=== PATIENT | female | born 1995 | race African-American/Black ===

== ENCOUNTER 2016-09-22 16:11 | Emergency (ER) | payer BC ==
[~2016-09-22] VITALS: Wt 126.7 kg
[~2016-09-22 16:11] MED LIST: ACET500C5 PO; DOCU-144 PO; FLUC150T17 PO; FLUT16SP24 NASAL; IBUP-1542 PO; IBUP800T25 PO; ONDA4TAB14 PO; ONDA4TAB35 PO; ONDA4TAB8 PO; PEN500 PO; POLY17PO6 PO; PRENAT PO; SODI44SP11 NS
[2016-09-22] MEDS ORDERED: ACETAMINOPHEN 325 MG TAB PO STA (17:52)
[2016-09-22 18:24] LABS: BASOPHILS % 0.2 % (0.0-2.0); EOSINOPHILS # 0.1 10^3/ul (0.0-0.5); EOSINOPHILS % 0.9 % (0.0-7.0); HEMATOCRIT 35.2 % (37.0-47.0); HEMOGLOBIN 11.8 g/dl (12.0-16.0); LYMPHOCYTES # 1.4 10^3/ul (0.8-2.9); LYMPHOCYTES % 22.6 % (15.0-51.0); MEAN CORPUSCULAR HGB CONC 33.6 g/dl (32.0-37.0); MEAN CORPUSCULAR VOLUME 83.4 fl (82.0-101.0); MEAN PLATELET VOLUME 8.5 fl (7.4-10.4); MONOCYTE # 0.8 10^3/ul (0.3-0.9); NEUTROPHIL # 3.7 10^3/ul (1.6-7.5); NEUTROPHILS % 62.3 % (39.0-77.0); PLATELET COUNT 216 10^3/UL (140-440); RED BLOOD COUNT 4.21 10^6/ul (4.20-5.40); RED CELL DISTRIBUTION WIDTH 16.9 % (11.5-14.5)
[2016-09-22 18:25] LABS: ADD UMIC YES; URINE BILIRUBIN (Dip) NEGATIVE (NEGATIVE); URINE BLOOD (Dip) NEGATIVE (NEGATIVE); URINE COLOR YELLOW (YELLOW); URINE GLUCOSE (Dip) NEGATIVE (NEGATIVE); URINE KETONES (Dip) NEGATIVE (NEGATIVE); URINE LEUKOCYTE ESTERASE (Dip) NEGATIVE (NEGATIVE); URINE NITRITE (Dip) NEGATIVE (NEGATIVE); URINE TOTAL PROTEIN (Dip) TRACE (NEGATIVE); URINE UROBILINOGEN (Dip) 0.2 E.U./dL (0.1-1.0)
[2016-09-22 18:29] LABS: CONDITION 1; LH ANALYZER COMMENTS 1
--- NOTE | 2016-09-22 18:30 | RADRPT ---
PROCEDURE: US OB. CLINICAL INDICATION: Pain TECHNIQUE: Multiple sonographic images of the pelvis were obtained. Transabdominal imaging only w as performed. The images were reviewed on a PACS workstation. COMPARISON: 08/01/2016 FINDINGS: Single intrauterine gestation. Variable presentation. heart rate is 144 bpm. The cervix is not well visualized. Measurements were made in order to determine age. The results are as follows: BPD = 2.61 cm HC = 9.76 cm AC = 8.22 cm FL = 1.38 cm Estimated gestational age is 14 weeks 3 days (based on ultrasound measurements). Estimated date of delivery is 03/20/2017. EFW = 95 g +/- 14 g. (68%) The placenta is fundal. There is no evidence for an abruption or placenta previa. Amniotic fluid volume is grossly normal. Ovaries are not visualized. No adnexal mass or pelvic free fluid is seen. IMPRESSION: 1. Single live intrauterine gestation of 14 weeks 3 days (based on ultrasound measurements), as abo ve. RPTAT: EE .Brennan Pal MD, Date Time Electronically viewed and signed by .Brennan Pal MD, on 09/22/2016 18:30 .R/
[2016-09-22 18:47] LABS: URINE RBCS 0-2 /HPF (0)
[2016-09-22 18:48] LABS: BACTERIA,URINE FEW; MUCUS,URINE MODERATE
[2016-09-22] MEDS ORDERED: PRENAT PO (19:40)
[2016-09-22] MEDS ORDERED: ACET325T33 PO (19:40)
[2016-09-22] MEDS ORDERED: METO10TA92 PO (19:46)
--- NOTE | 2016-09-22 19:52 | ERD ---
ER Documentation Chief Complaint Date/Time DATE: 09/22/16 TIME: 19:47 Chief Complaint lower pelvic pain and vaginal pain no dysruia. no vag bleeding HPI This is a 20-year-old female presenting to the emergency department complaining of pelvic pain for the past month. Patient states the pain is moderate in severity, she denies any dysuria, vaginal discharge, bleeding. Patient does not remember her last menstrual period. She denies sexual activity for past few months. Upon asking her about her last menstrual period, patient states that she is unsure if she is and that she may be 6 weeks . Patient states that she has been here in July as well. She denies any vomiting, ROS All systems reviewed and are negative except as per history of present illness. Medications Home Meds Active Scripts Metoclopramide* (Reglan*) 10 Mg Tablet, 10 MG PO Q6 Y for NAUSEA AND/OR VOMITING , #10 TAB Prov:ALMA MARES PA-C 09/22/16 Multivit/Min/Fol Ac/Iron/Pren* ( S*) 1 Tab Tab, 1 TAB PO DAILY, #30 TAB Prov:ALMA MARES PA-C 09/22/16 Acetaminophen* (Tylenol*) 325 Mg Tablet, 2 TAB PO Q6 Y for PAIN AND OR ELEVATED TEMP, #20 TAB Prov:ALMA MARES PA-C 09/22/16 Acetaminophen* (Tylophen*) 500 Mg Capsule, 1 CAP PO Q6H Y for PAIN AND OR ELEVATED TEMP, #20 CAP Prov:PATRIC SMITH NP 08/02/16 Ondansetron (Ondansetron Odt) 4 Mg Tab.rapdis, 4 MG PO Q8 Y for NAUSEA AND/OR VOMITING, #30 TAB Prov:PATRIC SMITH NP 08/02/16 Multivit/Min/Fol Ac/Iron/Pren* ( S*) 1 Tab Tab, 1 TAB PO DAILY, #30 TAB Prov:PATRIC SMITH NP 08/02/16 Fluconazole* (Diflucan*) 150 Mg Tablet, 150 MG PO ONCE, #1 TAB Prov:MELI COURTNEY MD 04/15/16 Ibuprofen* (Motrin*) 600 Mg Tab, 600 MG PO Q6, #20 TAB Prov:MELI COURTNEY MD 04/15/16 Ibuprofen* (Motrin*) 800 Mg Tab, 800 MG PO Q6H Y for PAIN AND OR ELEVATED TEMP, #30 TAB Prov:MANDEEP MAJANO MD 04/10/16 Ondansetron Hcl* (Zofran* ODT) 4 mg -ODT Tab.disper, 4 MG PO Q8 Y for NAUSEA AND OR VOMITING, #30 TAB Prov:PATRIC SMITH NP 10/16/15 Docusate Sodium* (Colace*) 100 Mg Capsule, 100 MG PO BID, #60 CAP Prov:PATRIC SMITH NP 10/16/15 Polyethylene Glycol* (Miralax*) 17 Gm Powd.pack, 17 GM PO DAILY, #30 PACKET Prov:PATRIC SMITH NP 10/16/15 Ondansetron Hcl* (Zofran*) 4 Mg Tablet, 4 MG PO Q6H for NAUSEA AND/OR VOMITING, #30 TAB Prov:EDWARD MARLOW PA-C 06/10/15 Penicillin V Potassium* (Penicillin V K*) 500 Mg Tab, 500 MG PO BID for 10 Days , TAB Prov:EDWARD MARLOW PA-C 06/10/15 Sodium Chloride (Saline Nasal [place]) 45 Ml [place], 2 SPRAYS NS q1, #1 BOTTLE Prov:DORINA BENITEZ NP 01/24/15 Fluticasone Propionate* (Flonase* Nasal) 50 Mcg/[place] - 16 Gm [place].susp, 1 SPRAY NASAL DAILY, #1 BOTTLE Prov:DORINA BENITEZ TOOL GRINDER OPERATOR EXTERNAL 01/24/15 Reported Medications [none] Unknown Strength No Conflict Check 10/16/15 Allergies Allergies: Coded Allergies: No Known Allergy (Unverified , 09/22/16) PMhx/Soc History of Surgery: No Anesthesia Reaction: No Hx Neurological Disorder: No Hx Respiratory Disorders: No Hx Cardiac Disorders: No Hx Psychiatric Problems: No Hx Miscellaneous Medical Probl: No Hx Alcohol Use: No Hx Substance Use: No Hx Tobacco Use: No Smoking Status: Never smoker Physical Exam Vitals Vital Signs Date Time Temp Pulse Resp B/P Pulse Ox O2 Delivery O2 Flow Rate FiO2 09/22/16 16:38 98.2 71 21 123/59 99 Physical Exam General: well-developed/well-nourished, in no apparent distress, non-toxic appearing HENT: NC/AT Eyes: Conjunctiva normal Neck: Supple Pulm: CTA bilaterally, normal breathing CV: Normal S1S2 GI: Soft, non-distended, normal bowel sounds, TTP on suprapubic region Back: No midline tenderness, no masses, No CVAT Ext: No clubbing, cyanosis, or edema Neuro: Alert and orientated Skin: intact, normal turgor Psych: Normal mood and mentation Result Diagram: 09/22/161809 Results 24 hrs Laboratory Tests Test 09/22/16 18:00 09/22/16 18:10 Urine Bacteria FEW Urine Bilirubin NEGATIVE Urine Clarity HAZY Urine Color YELLOW Urine Epithelial Cells MODERATE Urine Glucose NEGATIVE% Urine Hemoglobin NEGATIVE Urine Ketones NEGATIVE Urine Leukocyte Esterase NEGATIVE Urine Microscopic RBC 0-2/HPF Urine Microscopic WBC 0-2/HPF Urine Mucus MODERATE Urine Nitrite NEGATIVE Urine Specific [place] 1.020 Urine Total Protein TRACE Urine Urobilinogen 0.2 E.U./dL Urine pH 6.5 Basophils # 0.010^3/ul Basophils % 0.2% Beta HCG, Quantitative 39366.0mIU/ml Blood Morphology Comment Eosinophils # 0.110^3/ul Eosinophils % 0.9% Hematocrit 35.2% Hemoglobin 11.8g/dl Lymphocytes # 1.410^3/ul Lymphocytes % 22.6% Mean Corpuscular Hemoglobin 28.0pg Mean Corpuscular Hemoglobin Concent 33.6g/dl Mean Corpuscular Volume 83.4fl Mean Platelet Volume 8.5fl Monocytes # 0.810^3/ul Monocytes % 14.0% Neutrophils # 3.710^3/ul Neutrophils % 62.3% Nucleated Red Blood Cells # 0.010^3/ul Nucleated Red Blood Cells % 0.0/100WBC Platelet Count 84523^3/UL Red Blood Count 4.2110^6/ul Red Cell Distribution Width 16.9% White Blood Count 6.010^3/ul Current Medications Medications (Trade) Dose Ordered Sig/Ortega Route PRN Reason Start Time Stop Time Status Last Admin Dose Admin Acetaminophen (Tylenol Tab) 650 mg ONCE STAT PO 09/22/16 17:52 09/22/16 17:53 DC 09/22/16 18:02 Metoclopramide HCl (Reglan) 5 mg ONCE ONCE PO 09/22/16 20:00 09/22/16 20:00 DC Metoclopramide HCl (Reglan) 10 mg ONCE ONCE PO 09/22/16 20:00 09/22/16 20:01 Procedures/MDM This is a 20-year-old female presenting to the emergency department complaining of pelvic pain for the past month. I have reviewed patient's chart and she has been here in July in which there was incidental finding of , patient states that she is unsure if she is at this time, she has not seen any POCKET SETTER. Lab work was drawn. CBC did not show any evidence of leukocytosis or anemia. Beta [place]CG [place] was 66893 which is within normal limits. UA did not show any evidence of hemoglobin or urinary tract infection. OB ultrasound was done and radiologist stated: Single intrauterine gestation. Variable presentation. heart rate is 144 bpm. The cervix is not well visualized. Measurements were made in order to determine age. The results are as follows: BPD = 2.61 cm HC = 9.76 cm AC = 8.22 cm FL = 1.38 cm Estimated gestational age is 14 weeks 3 days (based on ultrasound measurements) . Estimated date of delivery is 03/20/2017. EFW = 95 g +/- 14 g. (68%) The placenta is fundal. There is no evidence for an abruption or placenta previa. Amniotic fluid volume is grossly normal. Ovaries are not visualized. No adnexal mass or pelvic free fluid is seen. IMPRESSION: 1. Single live intrauterine gestation of 14 weeks 3 days (based on ultrasound measurements), as above. There was no evidence of placenta previa or abruption or complete . No evidence of urinary tract infection. I have given patient Tylenol in the ED. Patient appears well I have reassessed her she was doing well however she stating that she feels very stressed out at work and she also is complaining of nausea, therefore patient was given Reglan prescription. I discussed with patient that she needs to follow-up with an POCKET SETTER tomorrow for further evaluation management. Discussed return to the ER for any worsening signs or symptoms. Patient understands and agrees with plan. Departure Diagnosis: Primary Impression: Pelvic pain during Condition: Stable Patient Instructions: Pelvic Pain In : Unclear (2-3 Trimester) Referrals: POCKET SETTER [place] [address] [facility] [address] [place] [address] OFFICE FAX , [facility] [address] [place] [address] [address], [place] [address] [place] [address] [address] LIRIANO, [facility] [address] [facility] [address] [address], [facility] [address] [place] [address] [facility] [address] [place] [address] [address] [facility] [address] [address] [facility] [address] [facility] [facility] [address] [address] MCCARTHY, [place] [address] [facility], [facility] [address] [address] [facility] [address] [place], [place] [address] Additional Instructions: FOLLOW UP WITH YOUR PRIMARY CARE PHYSICIAN TOMORROW.Return to this facility if you are not improving as expected. Return to this facility if you are not improving as expected. Take all medicines as directed. ALMA MARES PA-C Sep 22, 2016 19:52
[2016-09-22 19:58] VITALS: BP 118/90; PULSE 70; RESP 18; TEMP 98.2
[2016-09-22] MEDS ORDERED: METOCLOPRAMIDE 10 MG TAB PO ONE ×2 (20:00)
== END 2016-09-22 20:00 | disposition home or self-care (01) ==
LOC: FTE 16:11
DX: O26.891 Other specified pregnancy related conditions, first trimester (principal); R10.2 Pelvic and perineal pain; Z3A.01 Less than 8 weeks gestation of pregnancy
CPT/HCPCS: 36415; 76801; 81001; 84702; 85025; 86900; 86901; 87086; Z7502; Z7610; 81003

== ENCOUNTER 2017-03-17 11:38 | Inpatient (IN) | payer BC ==
[~2017-03-17] VITALS: Ht 172.7 cm; Wt 130.5 kg
[~2017-03-17 11:38] MED LIST changes: +ACET325T33 PO; +EPHEDrine SULFATE 50 MG/5 ML SYG ONE; +METO10TA92 PO
[2017-03-17 11:50] VITALS: BP 132/87; PULSE 89; RESP 18
[2017-03-17 11:52] VITALS: Ht 172.7 cm; Wt 130.5 kg
--- NOTE | 2017-03-17 12:38 | RADRPT ---
PROCEDURE: US OB. CLINICAL INDICATION: Size and dates , contractions TECHNIQUE: Multiple sonographic images of the pelvis and gravid uterus were obtained. The images were reviewed on a PACS workstation. COMPARISON: 09/22/2016 FINDINGS: There is a single viable intrauterine gestation. Cardiac activity is present with 140 beats per min ulises. There is a breech presentation. The placenta is fundal. There is no evidence for an abruption or placenta previa. Measurements were made in order to determine age. The results are as follows: BPD =8.9 cm HC =31.8 cm AC =31.2 cm FL =6.6 cm Estimated gestational age of approximately 35 weeks and 2 days based on ultrasound measurements. Clinical age: 39 weeks and 0 days. The estimated date of delivery is 04/19/2017, based on ultrasound measurements. The EFW = 2556 g, <3%, based on LMP age. RPTAT: AA IMPRESSION: Single viable intrauterine gestation of approximately 35 weeks and 2 days based on ultrasound measu rements. Smaller than clinical age by 4 weeks. .Man Lyon MD, MD Date Time Electronically viewed and signed by .Man Lyon MD, on 03/17/2017 12:38 .S/
--- NOTE | 2017-03-17 12:43 | RADRPT ---
PROCEDURE: US OB biophysical profile. CLINICAL INDICATION: decreased movements, contractions TECHNIQUE: Multiple sonographic images of the pelvis were obtained. The images were reviewed on a PACS workstation. COMPARISON: 09/22/2016 FINDINGS: There is a single viable intrauterine gestation. Cardiac activity is present with 128 beats per min [place]. There is a breech presentation. The placenta is fundal. There is no evidence of placental abruption. There is a normal amount of amniotic fluid with an LISA = 9.7 cm. Biophysical profile: movement 2/2 tone 2/2. breathing 2/2 LISA 2/2 Total 03/10 RPTAT: AA . IMPRESSION: Normal biophysical profile. . .Man Lyon MD, MD Date Time Electronically viewed and signed by .Man Lyon MD, MD on 03/17/2017 12:43 .S/
--- NOTE | 2017-03-17 13:22 | TRIAGE ---
OB Triage Datetime Report Generated by CPN: 03/17/2017 13:22 Datetime: 03/17/2017 12:51 Comments: fhr 145 Datetime: 03/17/2017 11:57 Stage of : OB Triage Maternal Assessment Level of Consciousness: Fully Conscious DTR's/Clonus: DTRs 2+; No Clonus Headache: Denies Blurred Vision: No Respiratory Effort: Unlabored; Regular Rhythm; Equal Expansion Breath Sounds, Left: Clear and Equal Breath Sounds, Right: Clear and Equal Nausea/Vomiting: Denies RUQ Epigastric Pain: Denies Lower Extremities Edema: None Degree: None Upper Extremities Edema: None Degree: None Facial Edema: None Temperature Route: Oral Fall Risk Assessment History of Falling: (0) No Secondary Diagnosis: (0) No Ambulatory Aid: (0) Bedrest/Nurse Assist IV Therapy: (0) No Gait: (0) Normal/Bedrest/Immobile Mental Status: (0) Oriented to Own Ability Fall Score: 0 Fall Risk Score Definition: No Risk: No action required Labor Evaluation Monitor Mode: External Heart Rate FHR Baseline Rate: 125 Monitor Mode: External US Pain Assessment Pain Scale: 6 Pain Presence: Intermittent Pain Type: Contraction Pain Location: Abdomen Datetime: 03/17/2017 11:56 Time of Arrival: 03/17/2017 11:27 EGA: 39.0 Arrived By: Ambulatory Arrived From: Home Chief Complaint: Pt. came to hospital c/o lower abdominal and lower back cont. pain for 2 days, ge tting worst today, pain level 10/10 Movement: Present Rupture of Membranes: Denies Vaginal Bleeding: None Vaginal Discharge: Denies Recent Sexual Intercouse: Denies Abdominal Trauma: Not Applicable Patient Complaints: Back Pain Additional Patient Complaints: Time Provider Notified: 03/10/2017 12:10 Provider Notified: dr. laura Initial Plan: r/o labor Datetime: 03/17/2017 11:54 Time of Arrival: 03/17/2017 11:27 Arrived By: Ambulatory Arrived From: Home Chief Complaint: contractions Movement: Present Contractions: Regular Time Contractions Began: 03/17/2017 08:00 Rupture of Membranes: Denies Vaginal Bleeding: None Vaginal Discharge: Denies Recent Sexual Intercouse: Denies Abdominal Trauma: Not Applicable Patient Complaints: Contractions Additional Patient Complaints: pressure on vaginal area, contractions for several days , pt has no care with this Time Provider Notified: 03/17/2017 11:54 Provider Notified: Karen Initial Plan: efm/ u/s
[2017-03-17 14:36] LABS: BASOPHILS % 0.1 % (0.0-2.0); EOSINOPHILS % 0.3 % (0.0-7.0); HEMOGLOBIN 10.1 g/dl (12.0-16.0); LYMPHOCYTES # 1.9 10^3/ul (0.8-2.9); LYMPHOCYTES % 25.2 % (15.0-51.0); MEAN CORPUSCULAR HEMOGLOBIN 26.4 pg (29.0-33.0); MEAN CORPUSCULAR HGB CONC 31.6 g/dl (32.0-37.0); MEAN CORPUSCULAR VOLUME 83.8 fl (82.0-101.0); MONOCYTE # 0.7 10^3/ul (0.3-0.9); MONOCYTES % 9.2 % (0.0-11.0); NEUTROPHILS % 64.5 % (39.0-77.0); NUCLEATED RED BLOOD CELLS% 0.4 /100WBC (0.0-0.0); PLATELET COUNT 251 10^3/UL (140-415); RED BLOOD COUNT 3.82 10^6/ul (4.20-5.40); WHITE BLOOD COUNT 7.5 10^3/ul (4.8-10.8)
[2017-03-17] MEDS: LACTATED RINGER'S 1,000 ML IV SCH ×2 (14:51→16:24)
[2017-03-17] MEDS ORDERED: OXYTOCIN 30 UNITS/LR 500 ML IV PRN ×2 (15:00→19:30)
[2017-03-17] MEDS ORDERED: AMPICILLIN 2 GM/NS (PMX) 100 ML IVPB ONE (15:00)
[2017-03-17] MEDS ORDERED: CEFAZOLIN 2 GM/50 ML (PMX) 50 ML IV SCH (15:00)
[2017-03-17] MEDS ORDERED: CARBOPROST 250 MCG INJ IM PRN ×2 (15:00→19:30)
[2017-03-17] MEDS ORDERED: MISOPROSTOL 200 MCG TAB PR PRN ×2 (15:00→19:30)
[2017-03-17] MEDS ORDERED: METHYLERGONOVINE 0.2 MG INJ IM PRN ×2 (15:00→19:30)
[2017-03-17] MEDS ORDERED: OXYTOCIN 30 UNITS/LR 500 ML IV SCH (15:00)
[2017-03-17 16:03] LABS: ADD UMIC NO; UR ASCORBIC ACID NEGATIVE (NEGATIVE); UR BILIRUBIN (Dip) NEGATIVE (NEGATIVE); UR BLOOD (Dip) NEGATIVE (NEGATIVE); UR CLARITY CLEAR (CLEAR); UR COLOR YELLOW (YELLOW); UR GLUCOSE (Dip) NEGATIVE (NEGATIVE); UR KETONES (Dip) TRACE mg/dL (NEGATIVE); UR LEUKOCYTE ESTERASE (Dip) NEGATIVE Leu/ul (NEGATIVE); UR NITRITE (Dip) NEGATIVE (NEGATIVE); UR SPECIFIC GRAVITY (Dip) 1.024 (1.003-1.030); UR TOTAL PROTEIN (Dip) NEGATIVE (NEGATIVE); UR UROBILINOGEN (Dip) NEGATIVE (NEGATIVE)
[2017-03-17 16:16] LABS: ALBUMIN 3.6 g/dl (3.3-4.9); BILIRUBIN,INDIRECT 0.1 mg/dl (0-1.1); BILIRUBIN,TOTAL 0.1 mg/dl (0.2-1.3); CALCIUM 9.4 mg/dl (8.4-10.2); CREATININE 0.47 mg/dl (0.44-1.00); URIC ACID 4.8 mg/dl (3.1-7.9)
[2017-03-17 16:17] LABS: ALBUMIN/GLOBULIN RATIO 1.05
[2017-03-17 16:18] LABS: CANNABINOIDS Negative (NEGATIVE)
[2017-03-17 16:23] LABS: BARBITURATES Negative (NEGATIVE); BENZODIAZEPINES Negative (NEGATIVE); COCAINE Negative (NEGATIVE); OPIATES Negative (NEGATIVE)
[2017-03-17 16:28] LABS: PARTIAL THROMBOPLASTIN TIME 31.5 Sec (25.0-35.0)
[2017-03-17 16:44] LABS: INR 0.91; PROTIME 12.2 Sec (12.2-14.2)
[2017-03-17] MEDS ORDERED: LACTATED RINGER'S 1,000 ML IV ONE (17:10)
[2017-03-17] MEDS ORDERED: CITRIC ACID/NA CITRATE 30 ML CUP PO ONE (17:30)
[2017-03-17] MEDS ORDERED: FAMOTIDINE 20 MG INJ IV ONE (17:30)
[2017-03-17] MEDS ORDERED: METOCLOPRAMIDE 10 MG INJ IV ONE (17:30)
[2017-03-17] MEDS ORDERED: morphine SULFATE/PF (10 MG/10 ML) INJ ONE (18:03)
[2017-03-17] MEDS ORDERED: FENTAnyl 50 MCG/ML VIAL ONE (18:03)
[2017-03-17] MEDS ORDERED: PHENYLephrine (100 MCG/ML) 5ML SYG ONE (18:19)
[2017-03-17] MEDS ORDERED: CEFAZOLIN 1 GM INJ ONE (18:25)
[2017-03-17] MEDS ORDERED: MEPERIDINE 25 MG INJ IV PRN (18:30)
[2017-03-17] MEDS ORDERED: ONDANSETRON 4 MG INJ IV PRN (18:30)
[2017-03-17] MEDS ORDERED: HYDROmorphONE (0.2 MG/ML) 10ML SYG IV PRN (18:30)
[2017-03-17] MEDS ORDERED: KETOROLAC 30 MG INJ IV PRN (18:30)
[2017-03-17] MEDS ORDERED: PROCHLORPERAZINE 10 MG INJ IV PRN (18:30)
[2017-03-17] MEDS ORDERED: FENTAnyl 50 MCG/ML VIAL IV PRN (18:30)
[2017-03-17] MEDS ORDERED: DIPHENHYDRAMINE 50 MG INJ IV PRN (18:30)
[2017-03-17] MEDS ORDERED: ONDANSETRON 4 MG INJ ONE (18:43)
[2017-03-17] MEDS ORDERED: OXYTOCIN 30 UNITS/LR 500 ML IV ONE (18:44)
[2017-03-17] MEDS ORDERED: AMPICILLIN 1 GM/NS (PMX) 50 ML IVPB SCH (19:00)
[2017-03-17] MEDS ORDERED: LACTATED RINGER'S 1,000 ML IV SCH (19:06)
[2017-03-17] MEDS ORDERED: OXYCODONE/ACETAMINOPHEN (5/325) TAB PO PRN (19:30)
[2017-03-17] MEDS ORDERED: LANOLIN 7 GM TUBE TOP PRN (19:30)
--- NOTE | 2017-03-17 20:32 | HP ---
DATE OF ADMISSION: 03/17/2017 HISTORY OF PRESENT ILLNESS: Ms. Rowan Vargas is a 21-year- old, 2, para 1, LMP 06/17/2016, EDC 03/24/2017. Intrauterine at 39 weeks gestational age presented to triage complaining of regular contractions, however, she denies any vaginal bleeding or discharge. On admission she was around 2 cm dilated. She had ultrasound performed which revealed that the presentation was breech. She continued to complain of cramping/contractions. She is currently 4 to 5 cm dilated, 80 percent effaced minus 2 station. After explaining the risks, benefits, and alternative, the patient agreed for an elective primary C section. She had limited care. According to the care records from [facility] she only has 2 visits. PAST MEDICAL HISTORY: None. MEDICATIONS: vitamins. PAST SURGICAL HISTORY: None. OB HISTORY: Times 1 vaginal delivery. ORTHOTIC AIDE HISTORY: 12/ regular /4 days. Denies any sexually transmitted disease. Sexually active with 1 partner. SOCIAL HISTORY: Denies any smoking, drugs, or alcohol. FAMILY HISTORY: None. REVIEW OF SYSTEMS: All within normal, except history of present illness. PHYSICAL EXAMINATION: HEENT: Within normal. RESPIRATORY: Normal sinus rhythm. CARDIAC: S1 and S2, regular rhythm. ABDOMEN: Gravid, nontender. EXTREMITIES: Negative edema. No calf tenderness. VAGINAL EXAM: 4 to 5 cm, 80 percent, minus 2 station. Intact. ASSESSMENT: A 21-year-old, 2, para 1, intrauterine at 39 weeks gestational age, in labor, limited care, malpresentation, desires elective delivery. PLAN: Consent for a primary C section. Risks, benefits, and alternatives were explained and all questions were answered. Dictated By: Frank Davila MD /ranjan/maria fernanda /Document#: [id number] ANNALEE
[2017-03-17] MEDS: SENNA/DOCUSATE NA (8.6MG/50MG) TAB PO SCH (21:00)
[2017-03-17 22:35] VITALS: BP 128/62; PULSE 87; RESP 18
--- NOTE | 2017-03-17 22:56 | OPR ---
DATE OF OPERATION: 03/17/2017 PREOPERATIVE DIAGNOSIS: A 21-year-old, 2, para 1, intrauterine at 39 weeks gestational age and labor, malpresentation. POSTOPERATIVE DIAGNOSIS: A 21-year-old, 2, para 1, intrauterine at 39 weeks gestational age and labor, malpresentation. PROCEDURE: Primary low transverse SURGEON: Frank Davila MD BOAT ENGINE MECHANIC: Walt Jones MD ANESTHESIA: Spinal. COMPLICATIONS: None ESTIMATED BLOOD LOSS: 500 mL. FINDINGS: A viable male, Apgars 8 and 9 respectively at 1 and 5 minutes, weight 6 pounds 3 ounces. Normal uterus, tubes, and ovaries. Brennon breach presentation. OPERATIVE PROCEDURE: The patient was taken to the operating room where spinal anesthesia was found to be adequate. She was then prepped and draped in the normal sterile fashion in dorsal supine position with leftward tilt. A Pfannenstiel skin incision was then made with the scalpel and carried to the underlying fascia. The fascia was incised in midline and incision extended laterally and Meyers scissors. The superior aspect of the fascial incision was grasped with the curved clamps and the underlying rectus muscles dissected bluntly. Attention was the turned to the inferior aspect of the incision which in a similar fashion was grasped with curved clamps and rectus muscles dissected bluntly. The rectus muscle was incised midline. The peritoneum was identified and entered sharply with Metzenbaum scissors. The peritoneal incision was extended superiorly to easily show the bladder. The bladder blade was then inserted and the vesical uterine peritoneum identified. It was grasps with pickups and sharply with Metzenbaum scissors the incision was extended laterally and bladder flap created digitally. The bladder blade was then reinserted and dissected to the transverse fascia with a scalpel. The uterine incision was extended laterally. The bladder blade was removed and the 's buttock were delivered to the level of the scapula. The right hand was flipped across the chest and delivered. Similarly the fetus was rotated 180 degrees and the left arm was flipped across the chest and delivered. The head was then delivered automatically. The nose and mouth were suctioned and the cord was clamped and cut after delay. The infant was handed off to the waiting rate quoting operator. The placenta was removed. The uterus explored and cleared of all clots and debris. The uterine incision was repaired with 1-0 Chromic in a running lock fashion. A second layer of the same suture was used for excellent hemostasis. The uterus was returned to the abdomen. The gutters were cleared of all clots. The peritoneum and rectus abdominus muscles were reapproximated with 3-0 Vicryl. The fascia was reapproximated 0 Vicryl. The subcutaneous tissue was reapproximated with 2-0 plain gut in a running fashion. The skin was closed with absorbable lisset. The patient tolerated the procedure well. Sponge, laps, and needle counts were correct. The patient was taken to recovery room in stable condition. Dictated By: Frank Davila MD /ranjan/maria fernanda /Document#: [id number] ANNALEE
[2017-03-18] VITALS: BP 116/59; PULSE 71; RESP 18
[2017-03-18] MEDS ORDERED: HYDROmorphONE 1 MG/ML SYG IV PRN ×2
[2017-03-18] MEDS ORDERED: ONDANSETRON 4 MG INJ IV PRN
[2017-03-18] MEDS ORDERED: DIPHENHYDRAMINE 50 MG INJ IV PRN
[2017-03-18] MEDS ORDERED: NALOXONE (0.4 MG/ML) INJ IV PRN
[2017-03-18] MEDS ORDERED: ZOLPIDEM 5 MG TAB PO PRN
[2017-03-18] MEDS: CEFAZOLIN 2 GM/50 ML (PMX) 50 ML IV SCH ×3 (01:51→17:51)
[2017-03-18 04:00] VITALS: BP 102/53; PULSE 77; RESP 18
[2017-03-18] MEDS: KETOROLAC 30 MG INJ IV PRN ×2 (06:45→13:45)
[2017-03-18 07:45] VITALS: BP 116/74; PULSE 99; RESP 20
[2017-03-18] MEDS: SENNA/DOCUSATE NA (8.6MG/50MG) TAB PO SCH ×2 (09:09→21:22)
[2017-03-18 10:29] LABS: BASOPHILS % 0.1 % (0.0-2.0); EOSINOPHILS % 0.1 % (0.0-7.0); HEMATOCRIT 27.1 % (37.0-47.0); HEMOGLOBIN 8.7 g/dl (12.0-16.0); LYMPHOCYTES # 1.6 10^3/ul (0.8-2.9); LYMPHOCYTES % 16.4 % (15.0-51.0); MEAN CORPUSCULAR HEMOGLOBIN 26.9 pg (29.0-33.0); MEAN CORPUSCULAR HGB CONC 32.1 g/dl (32.0-37.0); MEAN CORPUSCULAR VOLUME 83.6 fl (82.0-101.0); MEAN PLATELET VOLUME 10.7 fl (7.4-10.4); MONOCYTES % 9.6 % (0.0-11.0); NEUTROPHILS % 73.3 % (39.0-77.0); NUCLEATED RED BLOOD CELLS% 0.2 /100WBC (0.0-0.0); PLATELET COUNT 202 10^3/UL (140-415); RED BLOOD COUNT 3.24 10^6/ul (4.20-5.40); RED CELL DISTRIBUTION WIDTH 17.7 % (11.5-14.5)
[2017-03-18 12:00] VITALS: BP 120/56; PULSE 91; RESP 18
[2017-03-18 16:00] VITALS: BP 115/57; PULSE 87; RESP 19
[2017-03-18] MEDS: IBUPROFEN 600 MG TAB PO SCH (18:17)
[2017-03-18] MEDS: OXYCODONE/ACETAMINOPHEN (5/325) TAB PO PRN (19:48)
[2017-03-18 19:50] VITALS: BP 138/77; PULSE 77; RESP 18
[2017-03-18] MEDS: FERROUS SULFATE (EC) 325 MG TAB PO SCH (21:21)
[2017-03-19] MEDS: IBUPROFEN 600 MG TAB PO SCH ×4 (00:33→17:32)
[2017-03-19 04:20] VITALS: BP 112/70; PULSE 70; RESP 18
[2017-03-19 08:00] VITALS: BP 139/74; PULSE 67; RESP 18
[2017-03-19] MEDS: SENNA/DOCUSATE NA (8.6MG/50MG) TAB PO SCH ×2 (09:00→20:29)
[2017-03-19] MEDS: FERROUS SULFATE (EC) 325 MG TAB PO SCH ×2 (09:35→20:29)
[2017-03-19 10:01] LABS: BASOPHILS % 0.2 % (0.0-2.0); EOSINOPHILS # 0.1 10^3/ul (0.0-0.5); EOSINOPHILS % 0.6 % (0.0-7.0); HEMOGLOBIN 8.7 g/dl (12.0-16.0); LYMPHOCYTES # 2.3 10^3/ul (0.8-2.9); LYMPHOCYTES % 23.5 % (15.0-51.0); MEAN CORPUSCULAR HEMOGLOBIN 27.6 pg (29.0-33.0); MEAN CORPUSCULAR HGB CONC 32.2 g/dl (32.0-37.0); MEAN CORPUSCULAR VOLUME 85.7 fl (82.0-101.0); MEAN PLATELET VOLUME 10.7 fl (7.4-10.4); MONOCYTES % 9.7 % (0.0-11.0); NEUTROPHILS % 65.5 % (39.0-77.0); PLATELET COUNT 205 10^3/UL (140-415); RED BLOOD COUNT 3.15 10^6/ul (4.20-5.40); RED CELL DISTRIBUTION WIDTH 18.4 % (11.5-14.5); WHITE BLOOD COUNT 9.8 10^3/ul (4.8-10.8)
[2017-03-19 12:23] LABS: RUBELLA ANTIBODY - IGG 4.62 index
[2017-03-19 16:00] VITALS: BP 123/72; PULSE 93; RESP 18
[2017-03-19 20:25] VITALS: BP 133/69; PULSE 74; RESP 19
[2017-03-19] MEDS: OXYCODONE/ACETAMINOPHEN (5/325) TAB PO PRN (20:30)
--- NOTE | 2017-03-19 23:19 | QN ---
Documentation Comment progress note pod 2 patient seen and evaluated no complaints vs stable afebrle ab c/d/i no distention extremity no edema no calf tenderness a/ sp cd pod 2 stable p/ continue present management RIANNA GOMEZ MD Mar 19, 2017 23:19
[2017-03-20] MEDS: IBUPROFEN 600 MG TAB PO SCH ×5 (00:17→23:55)
[2017-03-20 04:10] VITALS: BP 120/59; PULSE 72; RESP 17
[2017-03-20 08:00] VITALS: BP 117/50; PULSE 66; RESP 17
[2017-03-20] MEDS: SENNA/DOCUSATE NA (8.6MG/50MG) TAB PO SCH ×2 (09:54→21:28)
[2017-03-20] MEDS: FERROUS SULFATE (EC) 325 MG TAB PO SCH ×2 (09:55→21:28)
[2017-03-20] MEDS: OXYCODONE/ACETAMINOPHEN (5/325) TAB PO PRN (09:59)
--- NOTE | 2017-03-20 12:16 | QN ---
Documentation Comment POD#3 is stable afebrile No Vb +BM +voids Vs Stable Gen NAD Abd soft NT ND Incision ntact Genitalia No blood at perinium --->patient desires to stay in the hospital one extra day as her pain is not controlled to her opinion -->Ambulation TOÑITO NOLEN M.D. Mar 20, 2017 12:16
[2017-03-20 15:59] VITALS: BP 117/55; PULSE 72; RESP 16
[2017-03-20 20:05] VITALS: BP 128/65; PULSE 69; RESP 18
[2017-03-21] MEDS: OXYCODONE/ACETAMINOPHEN (5/325) TAB PO PRN ×2 (02:17→09:49)
[2017-03-21 04:15] VITALS: BP 124/76; PULSE 63; RESP 18
[2017-03-21] MEDS: IBUPROFEN 600 MG TAB PO SCH ×3 (05:44→18:41)
[2017-03-21 09:15] VITALS: BP 119/80; PULSE 69; RESP 20
[2017-03-21] MEDS: FERROUS SULFATE (EC) 325 MG TAB PO SCH (09:48)
[2017-03-21] MEDS: SENNA/DOCUSATE NA (8.6MG/50MG) TAB PO SCH (09:49)
--- NOTE | 2017-03-21 11:10 | QN ---
Documentation Comment Progress Note POD #4 S/p primary c/s for breech 03/17. Pt is struggling with . Has ample milk production but needs nipple slater and is struggling with keeping them on and is extremely frustrated. C/O moderate back pain. Minimal lochia. T=98.2 BP 124/76 Fundus is firm. Incision is moist but intact and no blood. Steristrips in place. Lochia minimal. A: POD #4 s/p c/s. Moderate back pain. Poor so kendy. P: Continue care. Prefer pt stay until tomorrow to better help her sort out the . Pain meds regularly. forestry consultant. Should be able to be d/noreen home tomorrow. ANTONINA POPE MD Mar 21, 2017 11:10
[2017-03-21 16:00] VITALS: BP 131/71; PULSE 65; RESP 20
--- NOTE | 2017-03-21 19:41 | PD.PPDC ---
HIM SPECIALIST Discharge Instruction Condition Patient Condition: Good Diet Diet: Resume Regular Diet Activity/Restrictions Activity: Bedrest May be up to bathroom May be up for meals May Shower Restrictions: No Exercising No Lifting No Driving Minimize Walking Minimize Stair-climbing No Sexual Activity Nothing in the Vagina No [place] No Tampons, douche Wound/Drain Care Instructions Wound/Drain Care Instructions: Remove Steri Strips in 2 weeks Keep clean and dry Follow-up Follow-up with Physician: 2, Week/Weeks Return to clinic for HONING MACHINE OPERATOR Instructions: Fever greater than 101 Chills Worsening abdominal pain Excessive Vaginal Bleeding OB Instructions: Breast Tenderness Depression Surgical Instructions: Incisional Drainage Incisional Redness ANTONINA POPE MD Mar 21, 2017 19:41
[2017-03-21] MEDS ORDERED: Oxycodone/Acetamin (5/325) PO (19:45)
[2017-03-21] MEDS ORDERED: IBUP800T25 PO (19:45)
--- NOTE | 2017-03-21 19:47 | DS ---
Date/Time of Note Date/Time of Note DATE: 03/21/17 TIME: 19:46 Obstetrical Discharge Record Final Diagnosis Final Diagnosis: Term delivered Section Section: Primary Primary Indication Breech Complications Augmentation: No Induction: No Condition on Discharge Physical Assessment Last Vitals: Afebrile, normotensive Voiding: Yes Bowel Movement: Yes Breast: Filling Fundus: Firm Abdomen and Incision: Clean,dry and intact Calf Tenderness: No Patient Condition: ANTONINA Storey MD Mar 21, 2017 19:47
== END 2017-03-21 20:30 | disposition home or self-care (01) | DRG 766 ==
LOC: OBT 11:38 → L-D 11:39 → OBT 13:04 → OBG 13:05 → L-D 16:48 → PP1 22:40
PROVIDERS: ADMIT Obstetrics & Gynecology; ATTEND Obstetrics & Gynecology
PROC: 10D00Z1 Extraction of Products of Conception, Low, Open Approach (ICD-10-PCS; principal; 2017-03-17 18:30)
DX: O32.9XX0 Maternal care for malpresentation of fetus, unspecified, not applicable or unspecified (principal); O32.1XX0 Maternal care for breech presentation, not applicable or unspecified; Z37.0 Single live birth; Z3A.39 39 weeks gestation of pregnancy
CPT/HCPCS: 76815; 76818; 80053; 80307; 81003; 84560; 85025; 85610; 85730; 86592; 86703; 86762; 86885; 86900; 86901; 87340; 94760; 99464; G0463; J0290; J0690; J1200; J1885; J2274; J2370; J2405; J2590; J2765; J3010; J7120